=== PATIENT | male | born 1985 | race Caucasian/White ===

== ENCOUNTER 2018-05-15 09:29 | Outpatient (CLI) | payer OTHER | END 2018-05-15 09:30 | disposition home or self-care (01) | LOC: SC 09:29 | PROVIDERS: ATTEND Internal Medicine Pulmonary Disease | DX: G47.10 Hypersomnia, unspecified (principal); R41.89 Other symptoms and signs involving cognitive functions and awareness; R06.83 Snoring; G47.8 Other sleep disorders | CPT/HCPCS: 99203; 99212 ==

== ENCOUNTER 2018-06-03 20:40 | Outpatient (CLI) | payer OTHER | END 2018-06-03 20:41 | disposition home or self-care (01) | LOC: SC 20:40 | PROVIDERS: ATTEND Internal Medicine Pulmonary Disease | DX: G47.61 Periodic limb movement disorder (principal); G47.10 Hypersomnia, unspecified | CPT/HCPCS: 95810 ==

== ENCOUNTER 2018-07-10 10:26 | Outpatient (CLI) | payer OTHER | END 2018-07-10 10:27 | disposition home or self-care (01) | LOC: SC 10:26 | PROVIDERS: ATTEND Internal Medicine Pulmonary Disease | DX: R06.83 Snoring (principal); G47.61 Periodic limb movement disorder | CPT/HCPCS: 99212; 99213 ==

== ENCOUNTER 2018-09-19 19:57 | Emergency (ER) | payer OTHER ==
[2018-09-19 20:07] VITALS: BP 146/95
[2018-09-19] MEDS ORDERED: CLINDAMYCIN 150 MG CAPSULE PO STA (20:25)
--- NOTE | 2018-09-19 20:30 | ED Physician Documentation ---
PD HPI WOUND RECHECK - Stated complaint Stated Complaint: RED NOSE/PX - Chief complaint Chief Complaint: Wound - Histroy obtained from History obtained from: Patient - History of Present Illness Location: Nose (33-year-old gentleman who about 10 years ago had nasal cellulitis with MRSA and had an I&D done. Just today he has had redness and swelling at the tip of the nose without fevers.) Review of Systems Constitutional: denies: Fever, Chills Cardiac: denies: Chest pain / pressure, Palpitations Respiratory: denies: Dyspnea, Cough GI: denies: Abdominal Pain PD PAST MEDICAL HISTORY - Past Medical History Past Medical History: Yes - Past Surgical History Past Surgical History: No - Present Medications Home Medications: Ambulatory Orders Medication Instructions Recorded Confirmed Clindamycin HCl [Clindamycin 300MG 300 mg PO Q6H #28 capsule 09/19/18 [facility]] - Allergies Allergies/Adverse Reactions: Allergies Allergy/AdvReac Type Severity Reaction Status Date / Time No Known Drug Allergies Allergy Verified 09/19/18 20:07 - Social History Does the pt smoke?: No Smoking Status: Never smoker Does the pt drink ETOH?: Yes Does the pt have substance abuse?: No - Immunizations Immunizations are current?: Yes PD ED PE NORMAL - Vitals Vital signs reviewed: Yes - General General: Alert and oriented X 3, No acute distress - HEENT HEENT: Other (The tip of the nose is mildly red and swollen, but there is no drainage or fluctuance.) - Neck Neck: Supple, no meningeal sign, No bony TTP, No bruit - Neuro Neuro: Alert and oriented X 3, Normal speech Results - Vitals Vitals: Vital Signs - 24 hr 09/19/18 20:05 Temperature 36.2 C L Heart Rate 83 Respiratory 18 Rate Blood Pressure 146/95 H O2 Saturation 96 Oxygen O2 Source Room air PD MEDICAL DECISION MAKING - ED course ED course: 33-year-old gentleman with nasal tip cellulitis, he has a history of MRSA. There is no fluid collection or anything to drain at this juncture, I discussed with him that if this is a staph infection despite antibiotics he may well get m ore of an abscess and he is to return if it gets worse. Departure - Departure Disposition: 01 Home, Self Care Clinical Impression: Nose cellulitis Condition: Good Record reviewed to determine appropriate education?: Yes Instructions: ED Cellulitis Facial Prescriptions: Clindamycin HCl [Clindamycin 300MG CAP] 300 mg PO Q6H #28 capsule Comments: Return if worse or more swelling or fever, otherwise followup with your physician in 2 days Your blood pressure was elevated today on check into the emergency department. This does not mean that you have hypertension, it is a common phenomenon to come to the emergency department and have elevated blood pressure. I recommend that you see your primary care physician within the week to have it rechecked when you are feeling better.
== END 2018-09-19 20:34 | disposition home or self-care (01) ==
LOC: ED 19:57
DX: J34.0 Abscess, furuncle and carbuncle of nose (principal); Z86.14 Personal history of Methicillin resistant Staphylococcus aureus infection; R03.0 Elevated blood-pressure reading, without diagnosis of hypertension
CPT/HCPCS: 99283; A9270